=== PATIENT | female | born 1970 | race Caucasian/White ===

== ENCOUNTER 2021-09-30 14:04 | Outpatient (CLI) | payer OTHER, SELFPAY ==
--- NOTE | ~2021-09-30 | XR_ITS ---
EXAMINATION: [id number] INDICATION: Slipping rib syndrome TECHNIQUE: A frontal view of the chest and 3 views of the bilateral ribs were obtained. COMPARISON: None. FINDINGS: The lungs are free of acute opacities. There is no pleural effusion or pneumothorax. The ca rdiomediastinal silhouette is normal. No displaced rib fracture is identified. The rib positioning ap pears normal. Surgical changes are noted in the cervical spine. IMPRESSION: 1. No acute cardiopulmonary abnormality or evidence of displaced rib fracture. Reviewed, dictated and finalized at location B.
== END 2021-09-30 14:05 ==
PROVIDERS: PCP Internal Medicine; Visit Provider Internal Medicine
DX: M94.0 Chondrocostal junction syndrome [Tietze] (principal)
CPT/HCPCS: 71111

== ENCOUNTER 2022-03-07 08:21 | Outpatient (CLI) | payer OTHER, SELFPAY ==
--- NOTE | 2022-03-07 08:47 | ECG_ITS ---
Measurements Intervals Clements Rate: 70 P: 36 CO: 152 QRS: -8 QRSD: 98 T: 9 QT: 423 QTc: 457 Interpretive Statements POOR DATA QUALITY/BASELINE ARTIFACT SINUS RHYTHM LOW QRS VOLTAGE IN PRECORDIAL LEADS [QRS DEFLECTION < 1.0 mV IN CHEST LEADS] POOR R-WAVE PROGRESSION NO PREVIOUS ECG AVAILABLE FOR COMPARISON Electronically Signed On 03-07-2022 12:51:13 CDT by Emiliano Pathak M.D.
== END 2022-03-07 08:22 | disposition home or self-care (01) ==
LOC: ANHSURGERY 08:27
PROVIDERS: PCP Internal Medicine; Visit Provider Otolaryngology
DX: I10 Essential (primary) hypertension (principal); Z01.818 Encounter for other preprocedural examination
CPT/HCPCS: 93005

== ENCOUNTER 2022-03-10 00:37 | Day surgery (SDC) | payer OTHER, SELFPAY ==
[2022-03-06 13:19] VITALS: BMI 39.9
--- NOTE | 2022-03-06 13:27 | PC.NURSE ---
Report to the Outpatient Waiting Room, entrance under the green pavilion located off [facility], at time _0600_ on date _03-10-22_. OR Time: __729_. - You and your visitor will be asked to self-screen and do not enter if you have any COVID symptoms. - Only one visitor and NO children visitors are allowed at this time. - The patient visitor is requested to leave or wait in car when not with patient due to restrictions. - A mask is required within the hospital. Patients may have clear liquids (water, carbonated beverages, clear teas, apple juice) until 3 hours prior to surgery with a maximum of 20 ounces. - No food from midnight until time of surgery Take the following medications with a SIP of water the morning of surgery: ____Ok to take Tramadol and or Alprazolam if needed. Medications to discontinue per physician ____Stop all Vitamins Date to take last paub___[id number] Please no make-up, nail latvian, hairspray, perfume, deodorant, or body powder the day of surgery. No jewelry (including any body piercings) or valuables the day of surgery, leave them at home. Please take a shower or bath the night before, or the morning of, surgery with an antibacterial soap. Wear comfortable, loose fitting clothing. - Jewelry must be removed prior to entering the operating room. Rings and piercings that are not removed may be cut off. - The hospital will not accept responsibility for valuables. - Please leave all valuables, including medications, at home the day of surgery. If you are going home after surgery, a licensed rental car ferry driver must drive you home. - NO public transportation without another adult. - We recommend that an adult stay with you for 24 hours following discharge. - We also recommend that you do not drive, make important decision, drink alcoholic beverages, or take any drugs that were not prescribed by your health care provider for at least 24 hours after your discharge time. Follow any additional instructions given to you from your surgeon. If you or anyone in your household have experienced Covid symptoms in the past week, please notify your surgeon or the nurse liaison at the phone number below for possible testing. Telephone instructions given to __Patient___and asked if any additional questions and then verbalized understanding. Patient advised to call surgeon office or pre surgery nurse liaison [phone] if any additional questions.
[2022-03-10] VITALS (7 sets, daily range): BP systolic 118–156; BP diastolic 67–83; PULSE 61–85; RESP 10–16; TEMP 36.2; O2SAT 94–100
[2022-03-10] MEDS: ACETAMINOPHEN 500 MG TABLET 1000 MG PO (07:00)
[2022-03-10] MEDS: OXYMETAZOLINE HCL 0.05% NAS 15 ML BTL (*BKC) 1 SPRAY NASAL (07:00)
[2022-03-10] MEDS: LACTATED RINGERS 1,000 ML 30 ML IV CONT ×2 (07:00→08:37)
--- NOTE | 2022-03-10 07:02 | P.PNAN_ITS ---
Anes - Initial Pre Proc Eval Procedure: Operation Date: 03/10/22 07:30 Proposed Procedures p Septoplasty, - Robbie Dick MD s Bilateral Turbinate Reduction, Bilateral Nasal Valve Repair - Robbie Dick MD Date/Time: 03/10/22 07:02 Surgeon: Robbie Dick MD Pre Op Diagnosis: deviated septum, turbinate hypertrophy Patient Data Age: 51 Gender: F Height: 1.6 m Weight: 102.3 kg Allergies Allergy/AdvReac Type Severity Reaction Status Date / Time amoxicillin AdvReac Mild Other Verified 03/06/22 13:16 Home Medications Medication Instructions Recorded Confirmed Type alprazolam 0.25 mg tablet 0.25 mg PO TID PRN Anxiety 03/06/22 03/06/22 History atorvastatin 20 mg tablet 20 mg PO HS 03/06/22 03/06/22 History escitalopram oxalate 10 mg tablet 10 mg PO HS 03/06/22 03/06/22 History lisinopril 10 mg tablet 10 mg PO HS 03/06/22 03/06/22 History multivitamin 1 tablet PO DAILY 03/06/22 03/06/22 History omeprazole 40 mg capsule,delayed 40 mg PO QAM 03/06/22 03/06/22 History release tramadol 50 mg tablet 50 mg PO TID 03/06/22 03/06/22 History Patient hx anesthesia problems: none Family hx anesthesia problems: other (mother slow to awaken) Results Review: All pre-operative results and documents have been reviewed as part of the pre- operative evaluation. [facility] Past Medical History Medical History Anxiety Chronic pain syndrome Depression Hyperlipidemia Hypertension DAWN (obstructive sleep apnea) Family History Family History Father Hypertension Family history of type 2 diabetes mellitus Mother Family history of malignant neoplasm of breast in first degree relative Social History Social History Smoking packs per day: 0.75 Smoking cigarettes per day: 15.0 Years smoked: 20 Smoking pack-years: 15.00 Smoking status: Former smoker Tobacco type: cigarettes and e-cigarettes/vaping Smoking end date: 03/06/18 Additional smoking assessment comments: Currently vapes. Alcohol intake: never Living arrangements: with family Spiritual care concerns: No Anes - Eval Final PreProcedure Day of Procedure 03/10/22 07:02 Patient weight: morbidly obese Heart: regular rate and rhythm Lungs: clear to auscultation Airway: Mallampati scale class II Neurological: alert and oriented Last oral intake: >/= 8 hours ASA classification: III Emergent: no Anesthetic plan: proceed Anesthesia type and monitoring: general ETT and standard monitoring Results Review: All pre-operative results and documents have been reviewed as part of the pre- operative evaluation. Informed Consent: The patient's anesthetic plan and its attendant risks and benefits were discussed with the patient/family/POA. Questions were solicited and answers provided to the satisfaction of the patient/family/POA.
--- NOTE | 2022-03-10 07:10 | PM.IMHP ---
H&P: HPI History of Present Illness Date/Time: 03/10/22 07:10 Chief Complaint: nasal dyspnea Narrative: bilateral nasal syspnea Review of Systems Review of Systems: All systems reviewed & are unremarkable except as noted in HPI and below PMFSH Past Medical History Medical History Anxiety Chronic pain syndrome Depression Hyperlipidemia Hypertension DAWN (obstructive sleep apnea) Family History Family History Father Hypertension Family history of type 2 diabetes mellitus Mother Family history of malignant neoplasm of breast in first degree relative Social History Social History Smoking packs per day: 0.75 Smoking cigarettes per day: 15.0 Years smoked: 20 Smoking pack-years: 15.00 Smoking status: Former smoker Tobacco type: cigarettes and e-cigarettes/vaping Smoking end date: 03/06/18 Additional smoking assessment comments: Currently vapes. Alcohol intake: never Living arrangements: with family Spiritual care concerns: No Meds Home Medications and Allergies Home Medications Medication Instructions Recorded Confirmed Type alprazolam 0.25 mg tablet 0.25 mg PO TID PRN Anxiety 03/06/22 03/06/22 History atorvastatin 20 mg tablet 20 mg PO HS 03/06/22 03/06/22 History escitalopram oxalate 10 mg tablet 10 mg PO HS 03/06/22 03/06/22 History lisinopril 10 mg tablet 10 mg PO HS 03/06/22 03/06/22 History multivitamin 1 tablet PO DAILY 03/06/22 03/06/22 History omeprazole 40 mg capsule,delayed 40 mg PO QAM 03/06/22 03/06/22 History release tramadol 50 mg tablet 50 mg PO TID 03/06/22 03/06/22 History Allergies Allergy/AdvReac Type Severity Reaction Status Date / Time amoxicillin AdvReac Mild Other Verified 03/10/22 07:11 Exam Narrative: left septal deviation, bilateral nasal valve collapse, rest of exam unremarkable Assessment and Plan Assessment and plan (1) Deviated nasal septum: Code(s): J34.2 - Deviated nasal septum Status: Acute Plan Here for septoplasty, bilateral inferior turbinoplasty, bilateral nasal valve repair via alar chau grafting. r/b/a reviewed, pt agrees to proceed. refer to outpt H&P for full details.
--- NOTE | 2022-03-10 07:12 | WPDHPUPDATE1 ---
History and Physical Update Update Date/Time: 03/10/22 07:12 History and Physical has been reviewed, including an updated exam of the patient. There are NO changes in the patient's condition. Risks, benefits, and alternatives have been discussed and questions answered. Patient agrees to proceed with procedure.
[2022-03-10] MEDS: ceFAZolin 2 GM/D5W 50 ML 2 GM/50 ML BAG IVPB (07:23)
[2022-03-10] MEDS: SCOPOLAMINE 1.5 MG PATCH TRANSDERM (07:29)
[2022-03-10] MEDS: MUPIROCIN 2% OINT 22 GM TUBE 1 APPLIC EACH NARE (08:05)
[2022-03-10] MEDS: LIDO 1%/EPINEPHRINE 1:100,000 10 ML VIAL INFILTRATE (08:25)
--- NOTE | 2022-03-10 08:28 | P.OP_ITS ---
Procedure Note - Detailed Date of Procedure 03/10/22 Pre-op Diagnosis deviated septum, turbinate hypertrophy nasla valve collapse bilateral Post-op Diagnosis Same Procedure Performed Septoplasty, turbinoplasty, bilateral nasal valve repair Surgeon Robbie Dick MD Anesthesia General Indications chronic nasal dyspnea Findings left septal deviation bilateral nasal valve collapse bilateral alar chau grafts Description of Procedure DESCRIPTION OF PROCEDURE: After obtaining informed consent and proper site verification the patient was brought to the operating room and placed on the operating table in the supine position. They were placed under general endotracheal anesthesia by the anesthesia provider. The patient was then draped in standard fashion for septoplasty and turbinoplasty. A timeout was performed and the correct patient and procedure were verified. The nasal cavity was injected with 1% lidocaine with 1-100,000 epinephrine and packed with afrin-soaked cottonoid pledgets. Attention was then directed to the nasal septum. A hemitransfixion incision was made in the left caudal septum and a mucoperichondrial flap was elevated in the usual fashion. The flap was elevated under endoscopic visualization and the remainder of the case was performed with endoscopic assistance. Using a D-knife, an incision was made through the cartilaginous septum with care to preserve the appropriate caudal and dorsal ?L-strut? of cartilage. The cartilage was then disarticulated from the bony-cartilaginous junction and the deviated cartilage was removed. Further deviated bone and cartilage was removed from the maxillary crest and posterior bony septum with care to avoid injury to the mucoperichondrial flap using a combination of dissection and [place]-Solomon forceps. Once this was completed, the hemitransfixion incision was closed using simple interrupted 4-0 chromic suture. A quilting stitch to reapproximate the mucoperichondrial flaps was then placed using 4-0 plain gut suture on a [place] needle.? The cartilage was set aside and saved for later grafting. Next attention was directed to the turbinates. Using a 0? telescope and 2mm turbinate blade microdebrider, a stab incision was made in the anterior face of the turbinate and dissection was carried posterior to perform submucosal resection. Next the turbinate was outfractured using a blunt instrument. A similar procedure was then performed on the right-hand side without difficulty. The previously harvested septal cartilage was then carved into two appropriately sized alar chau grafts.? Marginal incisions were made bilaterally through the vestibular nasal skin.? Using curved iris scissors, a pocket was dissected laterally along the lower lateral crura out to the piriform aperture for placement of the grafts.? The grafts were then placed into the dissected pockets bilaterally.? Once secure, the incisions were closed with 4-0 chromic suture. Holt splints covered in mupirocin ointment were placed in the nasal cavity and secured to the membranous septum using a 3-0 Prolene suture. An shankar-gastric tube was used to decompress the stomach and care of the patient was handed over to anesthesia. The patient was awakened from general anesthesia extubated in the operating room, and transported to the recovery room in stable condition without complication. Robbie Dick M.D. Estimated Blood Loss 20 Drains No Packing Yes (holt splints) Pathology None sent Complications No immediate complications Condition Stable Disposition PACU
[2022-03-10] MEDS: fentaNYL CITRATE INJ (*CRX) 100 MCG/2 ML VIAL 25 MCG IV PUSH ×4 (08:58→09:18)
--- NOTE | 2022-03-10 09:05 | SUR.PHASEI ---
0905: Face tent removed.
[2022-03-10] MEDS: oxyCODONE HCL (*CRX) 5 MG TAB IR PO (09:57)
== END 2022-03-10 10:20 | disposition home or self-care (01) ==
PROVIDERS: PCP Internal Medicine; Visit Provider Otolaryngology
PROC: (CPT 30520; principal; 2022-03-10 07:30)
PROC: (CPT 30520; 2022-03-10 07:30)
DX: J34.2 Deviated nasal septum (principal); J34.3 Hypertrophy of nasal turbinates; J30.2 Other seasonal allergic rhinitis; M95.0 Acquired deformity of nose; F41.9 Anxiety disorder, unspecified; F32.A Depression, unspecified; E78.5 Hyperlipidemia, unspecified; G47.33 Obstructive sleep apnea (adult) (pediatric); G89.4 Chronic pain syndrome; Z87.891 Personal history of nicotine dependence; I10 Essential (primary) hypertension; E66.01 Morbid (severe) obesity due to excess calories; Z68.41 Body mass index [BMI] 40.0-44.9, adult
CPT/HCPCS: 30520; 30140; 93005; A9270; J0330; J0690; J1100; J2250; J2405; J2704; J3010; J7120